=== PATIENT | male | born 1965 | race Caucasian/White ===

== ENCOUNTER 2016-12-22 13:25 | Emergency (ER) | payer BC ==
[2016-12-22 13:19] LABS: BASOPHILS 0.2 %; BASOPHILS ABSOLUTE 0.03 10/3/uL (0.0-0.16); EOSINOPHILS 17.3 %; ER CBC TAT 0 Hrs 12 Mins; HEMATOCRIT 50.9 % (40.0-51.0); HEMOGLOBIN 18.1 g/dL (13.6-17.8); IMMATURE GRANULOCYTES 0.4 %; IMMATURE GRANULOCYTES ABSOLUTE 0.06 10/3/uL (0.0-0.11); LYMPHOCYTES 11.3 %; LYMPHOCYTES ABSOLUTE 1.66 10/3/uL (0.67-4.30); MEAN CORPUS HGB CONC 35.6 g/dL (32.0-36.0); MEAN CORPUSCULAR HEMOGLOB 29.9 pg (26.0-34.0); MEAN CORPUSCULAR VOLUME 84.1 fL (80-100); MEAN PLATELET VOLUME 9.6 fL (9.2-13.0); MONOCYTES 7.1 %; MONOCYTES ABSOLUTE 1.05 10/3/uL (0.21-1.20); NEUTROPHILS 63.7 %; NEUTROPHILS ABSOLUTE 9.36 10/3/uL (2.02-8.40); PLATELET COUNT 190 10/3/uL (150-400); RED CELL COUNT 6.05 10/6/uL (4.7-6.1); WHITE BLOOD CELLS 14.7 10/3/uL (4.5-10.5)
[2016-12-22 13:21] LABS: EOSINOPHILS ABSOLUTE 2.55 10/3/uL (0.0-0.53); MANUAL DIFF NO %
[2016-12-22 13:35] LABS: A/G RATIO 1.2 (0.7-1.9); ALBUMIN 3.4 G/DL (3.5-5.0); ALKALINE PHOSPHATASE 134 U/L (45-117); BUN (BLOOD UREA NITROGEN) 16 MG/DL (6-23); CHLORIDE, SERUM 101 MMOL/L (96-112); CO2 (CARBON DIOXIDE) 30 MMOL/L (24-34); CREATININE 1.12 MG/DL (0.70-1.30); GFR AFRICAN AMERICAN 88 ML/MIN (>=60); GFR NON AFRICAN AMERICAN 76 ML/MIN (>=60); GLOBULIN 2.8 G/DL (2.5-4.1); GLUCOSE, SERUM 109 MG/DL (60-99); POTASSIUM, SERUM 3.5 MMOL/L (3.5-5.3); SGOT(AST) 22 U/L (5-40); SGPT(ALT) 30 U/L (5-65); SODIUM, SERUM 141 MMOL/L (135-148); TOTAL BILIRUBIN 1.1 MG/DL (0-1.2); TOTAL PROTEIN 6.2 G/DL (6.0-8.5)
[2016-12-22 13:38] LABS: BAND NEUTROPHILS 1 %; EOSINOPHILS 20 %; EOSINOPHILS ABSOLUTE (CALC) 2.94 10/3/uL (0.0-0.53); ER DIFF TAT 0 Hrs 31 Mins; LYMPHOCYTES 16 %; LYMPHOCYTES ABSOLUTE (CALC) 2.35 10/3/uL (0.67-4.30); MONOCYTES 3 %; MONOCYTES ABSOLUTE (CALC) 0.44 10/3/uL (0.21-1.20); NEUTROPHILS ABSOLUTE (CALC) 8.97 10/3/uL (2.02-8.40); PLATELET ESTIMATE ADQ (ADEQUATE); RBC MORPHOLOGY NORM (NORMAL); SEGMENTED NEUTROPHIL (0) 60 %; TOTAL NUCLEATED CELLS 100
[2016-12-22 13:53] LABS: ASCORBIC ACID (UR NOT ORDER) NEG (NEG); BILIRUBIN, URINE NEGATIVE (NEG); ER URINALYSIS TAT 0 Hrs 11 Mins; KETONE, URINE TRACE MG/DL (NEG); LEUKOCYTE ESTERASE(NOT OR NEG (NEG); NITRITE (URINE) NEG (NEG); WBC (NOT ORDERED) (RFLEX) 1 (0-5)
== END 2016-12-22 16:54 | disposition home or self-care (01) ==
LOC: ER 13:25
PROVIDERS: Emergency Medicine
DX: K56.7 Ileus, unspecified (principal); E11.9 Type 2 diabetes mellitus without complications; I25.2 Old myocardial infarction; I10 Essential (primary) hypertension
CPT/HCPCS: 74176; 80053; 81001; 83690; 85025; 87045; 87046; 87046-59; 87328; 87329; 87493; 87493-59; 87899; 87899-59; 89055; 93005; 96374; 99285; J2405